=== PATIENT | male | born 1955 | race Hispanic/Latino ===

== ENCOUNTER 2017-11-06 10:00 | Emergency (ER) | payer MEDICARE ==
[~2017-11-06] VITALS: Ht 175.3 cm; Wt 106.6 kg
--- OUTSIDE RECORDS SUMMARY | 2017-11-06 10:02 | XMS REPORT ---
Author Author [facility] Address Unknown Phone Unavailable Care Team Providers Care Disaster Recovery Manager Name Role Phone KEYONA PEDROZA Unavailable Unavailable Problems This patient has no known problems. Allergies, Adverse Reactions, Alerts This patient has no known allergies or adverse reactions. Medications This patient has no known medications. Results Test Description Test Time Test Comments Text Results Atomic Results Result Comments BASIC METABOLIC PANEL 2017-01-03 12:39:00 SODIUM (BEAKER) (test nvpb=807) 134 meq/L 136-145 POTASSIUM (BEAKER) (test jlbl=524) 4.4 meq/L 3.5-5.1 Specimen slightly hemolyzed CHLORIDE (BEAKER) (test fzwt=215) 101 meq/L 98-107 CO2 (BEAKER) (test cjgq=041) 22 meq/L 22-29 BLOOD UREA NITROGEN (BEAKER) (test ujnb=697) 13 mg/dL 7-21 CREATININE (BEAKER) (test mwdi=865) 1.00 mg/dL 0.57-1.25 Specimen slightly hemolyzed GLUCOSE RANDOM (BEAKER) (test ghyi=033) 444 mg/dL 70-105 CALCIUM (BEAKER) (test fgdj=921) 8.8 mg/dL 8.4-10.2 EGFR (BEAKER) (test lqir=1267) 76 mL/min/1.73 sq m ESTIMATED GFR IS NOT ACCURATE CREATININE CLEARANCE IN PREDICTING GLOMERULAR FILTRATION RATE. ESTIMATED GFR IS NOT APPLICABLE FOR DIALYSIS PATIENTS. CBC W/PLT COUNT & AUTO [id number] 11:23:00* Test Item Value Reference Range Comments WHITE BLOOD CELL COUNT (BEAKER) (test mwif=777) 8.2 K/ L 4.0-10.0 RED BLOOD CELL COUNT (BEAKER) (test bcql=294) 4.74 M/ L 4.20-5.80 HEMOGLOBIN (BEAKER) (test zive=009) 15.0 GM/DL 13.0-16.8 HEMATOCRIT (BEAKER) (test annn=804) 41.5 % 40.0-50.0 MEAN CORPUSCULAR VOLUME (BEAKER) (test vntz=334) 87.6 fL 82.0-98.0 MEAN CORPUSCULAR HEMOGLOBIN (BEAKER) (test bqyf=004) 31.7 pg 27.0-33.0 MEAN CORPUSCULAR HEMOGLOBIN CONC (BEAKER) (test npqo=323) 36.1 GM/DL 32.0- 36.0 RED CELL DISTRIBUTION WIDTH (BEAKER) (test oooa=602) 13.0 % 10.3-14.2 PLATELET COUNT (BEAKER) (test opyq=184) 283 K/CU MM 150-430 MEAN PLATELET VOLUME (BEAKER) (test vdrk=832) 6.2 fL 6.5-10.5 NUCLEATED RED BLOOD CELLS (BEAKER) (test wjhi=603) 0 /100 WBC 0-0 NEUTROPHILS RELATIVE PERCENT (BEAKER) (test rdrs=965) 60 % LYMPHOCYTES RELATIVE PERCENT (BEAKER) (test erng=596) 33 % MONOCYTES RELATIVE PERCENT (BEAKER) (test wtzp=188) 5 % EOSINOPHILS RELATIVE PERCENT (BEAKER) (test sseo=023) 1 % BASOPHILS RELATIVE PERCENT (BEAKER) (test xnva=320) 1 % NEUTROPHILS ABSOLUTE COUNT (BEAKER) (test dssc=286) 4.90 K/ L 1.80-8.00 LYMPHOCYTES ABSOLUTE COUNT (BEAKER) (test rkyh=249) 2.70 K/ L 1.48-4.50 MONOCYTES ABSOLUTE COUNT (BEAKER) (test tyjk=752) 0.41 K/ L 0.00-1.30 EOSINOPHILS ABSOLUTE COUNT (BEAKER) (test dtbu=089) 0.11 K/ L 0.00-0.50 BASOPHILS ABSOLUTE COUNT (BEAKER) (test vdiu=663) 0.04 K/ L 0.00-0.20 0.00
[2017-11-06] MEDS ORDERED: SODIUM CHLORIDE 0.9% 1000ML 1,000 ML IV STA (10:28)
[2017-11-06] MEDS ORDERED: METRONIDAZOLE 500 MG TAB PO ONE (10:30)
[2017-11-06 11:00] LABS: BASOPHILS % 0.5 % (0.0-1.0); EOSINOPHILS # (AUTO) 0.1 (0.0-0.4); EOSINOPHILS % 1.1 % (0.0-6.0); HEMATOCRIT 38.1 % (38.2-49.6); HEMOGLOBIN 13.5 g/dL (14.0-18.0); LYMPHOCYTES # (AUTO) 2.2 (1.0-3.2); LYMPHOCYTES % 35.6 % (18.0-39.1); MEAN CORPUSCULAR HEMOGLOBIN 30.5 pg (28-32); MEAN CORPUSCULAR HGB CONC 35.4 g/dL (31-35); MONOCYTES # (AUTO) 0.4 (0.2-0.8); MONOCYTES % 6.6 % (4.4-11.3); NEUTROPHILS # (AUTO) 3.4 (2.1-6.9); PLATELET COUNT 239 x10e3/uL (140-360); RED BLOOD COUNT 4.43 x10e6/uL (4.3-5.7); RED CELL DISTRIBUTION WIDTH 12.5 % (11.7-14.4)
[2017-11-06 11:17] LABS: ALANINE AMINOTRANSFERASE 53 IU/L (0-55); ALBUMIN 3.6 g/dL (3.5-5.0); ALBUMIN/GLOBULIN RATIO 0.9 (0.8-2.0); ALKALINE PHOSPHATASE 84 IU/L (40-150); ANION GAP 11.7 mmol/L (8-16); BLOOD UREA NITROGEN 12 mg/dL (7-26); BUN/CREATININE RATIO 15 (6-25); CALCIUM 8.9 mg/dL (8.4-10.2); CARBON DIOXIDE 26 mmol/L (22-29); CHLORIDE 103 mmol/L (98-107); CREATININE, SERUM 0.78 mg/dL (0.72-1.25); EST GLOMERULAR FILTRATION RATE > 60 ML/MIN (60-); GLUCOSE 316 mg/dL (74-118); POTASSIUM 3.7 mmol/L (3.5-5.1); SODIUM 137 mmol/L (136-145)
[2017-11-06 11:40] LABS: BILIRUBIN,URINE NEGATIVE (NEGATIVE); KETONES,URINE NEGATIVE (NEGATIVE); LEUKOCYTE ESTERASE ,URINE NEGATIVE (NEGATIVE); NITRITE,URINE NEGATIVE (NEGATIVE); PROTEIN,URINE DIPSTICK NEGATIVE (NEGATIVE); URINE UROBILINOGEN 0.2 mg/dL (0.2 - 1)
[2017-11-06 11:46] LABS: CLARITY,URINE CLEAR (CLEAR); COLOR,URINE YELLOW (YELLOW)
[2017-11-06 11:54] LABS: EPITHELIAL CELLS,URINE RARE /LPF
[2017-11-06 12:58] VITALS: BP 104/62
== END 2017-11-06 13:08 | disposition home or self-care (01) ==
LOC: ER 10:00
DX: R19.7 Diarrhea, unspecified (principal)
CPT/HCPCS: 36415; 80053; 81001; 85025; 99283; J7030

== ENCOUNTER 2018-10-05 11:07 | Emergency (ER) | payer MEDICARE ==
[~2018-10-05] VITALS: Ht 175.3 cm; Wt 106.6 kg
--- OUTSIDE RECORDS SUMMARY | 2018-10-05 11:10 | XMS REPORT | Clinical Summary ---
Author Author JONATHAN [facility] Organization [facility] Address Unknown Phone Unavailable Care Team Providers Care Fitness Assistant Name Role Phone Sharpless PCP Allergies Not on File Medications Not on file Active Problems Not on file Social History Date Tobacco Use Types Packs/Day Years Used Never Assessed Sex Assigned at Date Recorded Not on file Industry Job Start Date Occupation Not on file Not on file Not on file Travel End Travel History Travel Start No recent travel history available. Last Filed Vital Signs Not on file Plan of Treatment Not on file Results Not on fileafter 10/04/2017 Insurance Payer Benefit Subscriber ID Type Phone Address Plan / Group MEDICARE MEDICARE A xxxxxxxxxx Medicare B MEDICAID MEDICAID xxxxxxxxx Medicaid [place] amily (Home) [place] [address]
[2018-10-05] MEDS ORDERED: SODIUM CHLORIDE 0.9% 1000ML 1,000 ML IV STA (11:27)
[2018-10-05] MEDS ORDERED: DICYCLOMINE HCL 20 MG/2 ML VIAL IM ONE (11:30)
[2018-10-05] MEDS ORDERED: CLONIDINE HCL 0.1 MG TAB PO NR (12:00)
--- NOTE | 2018-10-05 12:19 | Diagnostic Imaging Report ---
Examination: Single AP view of the chest. COMPARISON: None. INDICATION: Dizziness DISCUSSION: Lines/tubes: None. Lungs: The lungs are well inflated and clear. There is no evidence of pneumonia or pulmonary edema. Pleura: There is no pleural effusion or pneumothorax. Heart and mediastinum: The heart and the mediastinum are unremarkable. Bones and soft tissues: No acute bony abnormalities. IMPRESSION: 1. No acute cardiopulmonary abnormalities. Signed by: Dr. Geoffrey Gann M.D. on 10/05/2018 12:16 PM
[2018-10-05 12:38] LABS: BASOPHILS % 0.4 % (0.0-1.0); COLOR,URINE AMBER (YELLOW); EOSINOPHILS % 0.3 % (0.0-6.0); HEMATOCRIT 46.1 % (38.2-49.6); HEMOGLOBIN 16.4 g/dL (14.0-18.0); LYMPHOCYTES % 18.2 % (18.0-39.1); MEAN CORPUSCULAR HEMOGLOBIN 30.5 pg (28-32); MEAN CORPUSCULAR HGB CONC 35.6 g/dL (31-35); MEAN CORPUSCULAR VOLUME 85.7 fL (81-99); MONOCYTES # (AUTO) 0.6 (0.2-0.8); MONOCYTES % 5.6 % (4.4-11.3); NEUTROPHILS # (AUTO) 8.1 (2.1-6.9); NEUTROPHILS % 75.2 % (38.7-80.0); PLATELET COUNT 407 x10e3/uL (140-360); RED BLOOD COUNT 5.38 x10e6/uL (4.3-5.7); RED CELL DISTRIBUTION WIDTH 12.4 % (11.7-14.4)
[2018-10-05 12:39] LABS: BILIRUBIN,URINE NEGATIVE (NEGATIVE); CLARITY,URINE SL CLOUDY (CLEAR); KETONES,URINE NEGATIVE (NEGATIVE); LEUKOCYTE ESTERASE ,URINE NEGATIVE (NEGATIVE); NITRITE,URINE NEGATIVE (NEGATIVE); PROTEIN,URINE DIPSTICK 1+ (NEGATIVE); URINE UROBILINOGEN 0.2 mg/dL (0.2 - 1)
[2018-10-05 12:43] LABS: PHENCYCLIDINE SCREEN,URINE NEGATIVE (NEGATIVE)
[2018-10-05 12:44] LABS: AMPHETAMINES SCREEN,URINE NEGATIVE (NEGATIVE); BENZODIAZEPINES SCREEN,URINE POSITIVE (NEGATIVE)
[2018-10-05 12:59] LABS: AMYLASE 27 U/L (25-125); LIPASE 9 U/L (8-78)
[2018-10-05 13:03] LABS: PARTIAL THROMBOPLASTIN TIME 32.7 seconds (23.8-35.5); PROTHROMBIN TIME 14.1 seconds (11.9-14.5)
[2018-10-05 13:07] LABS: ALANINE AMINOTRANSFERASE 13 IU/L (0-55); ALBUMIN/GLOBULIN RATIO 0.8 (0.8-2.0); ALKALINE PHOSPHATASE 87 IU/L (40-150); ANION GAP 14.9 mmol/L (8-16); BLOOD UREA NITROGEN 22 mg/dL (7-26); BUN/CREATININE RATIO 19 (6-25); CALCIUM 9.3 mg/dL (8.4-10.2); CARBON DIOXIDE 28 mmol/L (22-29); CHLORIDE 99 mmol/L (98-107); CREATINE KINASE 36 IU/L (30-200); CREATININE, SERUM 1.17 mg/dL (0.72-1.25); EST GLOMERULAR FILTRATION RATE > 60 ML/MIN (60-); GLUCOSE 70 mg/dL (74-118); MAGNESIUM 1.9 MG/DL (1.3-2.1); POTASSIUM 3.9 mmol/L (3.5-5.1); SODIUM 138 mmol/L (136-145)
[2018-10-05 13:10] LABS: RBC,URINE 0-5 /HPF (0-5); WBC,URINE (MAN) 0-5 /HPF (0-5)
[2018-10-05 13:11] LABS: BACTERIA,URINE MODERATE /HPF; EPITHELIAL CELLS,URINE FEW /LPF; MUCUS,URINE MANY (RARE)
--- NOTE | 2018-10-05 13:34 | NUR ---
PT STATES HE IS NO LONGER DIZZY AND FEELS A LOT BETTER
--- NOTE | 2018-10-05 13:34 | NUR ---
PT REASSESSED FOR BACK PAIN AFTER BENTYL ADMIN AND STATES PAIN IS NOW 08/27
[2018-10-05 14:27] VITALS: BP 131/84
== END 2018-10-05 14:52 | disposition home or self-care (01) ==
LOC: ER 11:07
DX: R00.2 Palpitations (principal); R10.12 Left upper quadrant pain; R11.0 Nausea; R19.7 Diarrhea, unspecified; F11.23 Opioid dependence with withdrawal; I10 Essential (primary) hypertension; E11.9 Type 2 diabetes mellitus without complications; E78.5 Hyperlipidemia, unspecified; M54.5 Low back pain; G89.29 Other chronic pain; M10.9 Gout, unspecified
CPT/HCPCS: 36415; 71045; 80053; 80307; 81001; 82150; 82550; 82553; 82948; 83690; 83735; 84484; 85025; 85610; 85730; 93005; 99284; J0500; J7030

== ENCOUNTER 2020-09-24 16:02 | Inpatient (IN) | payer MEDICARE ==
[~2020-09-24] VITALS: Ht 175.3 cm; Wt 77.1 kg
[2020-09-24 16:59] LABS: BASOPHILS % 0.2 % (0.0-1.0); EOSINOPHILS % 0.2 % (0.0-6.0); HEMATOCRIT 28.4 % (38.2-49.6); HEMOGLOBIN 9.7 g/dL (14.0-18.0); LYMPHOCYTES % 20.9 % (18.0-39.1); MEAN CORPUSCULAR HEMOGLOBIN 35.4 pg (28-32); MEAN CORPUSCULAR HGB CONC 34.2 g/dL (31-35); MEAN CORPUSCULAR VOLUME 103.6 fL (81-99); MONOCYTES # (AUTO) 0.4 (0.2-0.8); NEUTROPHILS # (AUTO) 3.4 (2.1-6.9); NEUTROPHILS % 70.5 % (38.7-80.0); PLATELET COUNT 140 x10e3/uL (140-360); RED BLOOD COUNT 2.74 x10e6/uL (4.3-5.7); RED CELL DISTRIBUTION WIDTH 17.2 % (11.7-14.4)
[2020-09-24 17:22] LABS: INR 1.26; PROTHROMBIN TIME 16.7 seconds (11.9-14.5)
[2020-09-24 17:23] LABS: PARTIAL THROMBOPLASTIN TIME 40.4 seconds (23.8-35.5)
[2020-09-24 17:32] LABS: ALANINE AMINOTRANSFERASE 27 IU/L (0-55); ALBUMIN 1.7 g/dL (3.5-5.0); ALBUMIN/GLOBULIN RATIO 0.4 (0.8-2.0); ALKALINE PHOSPHATASE 168 IU/L (40-150); BLOOD UREA NITROGEN 22 mg/dL (7-26); BUN/CREATININE RATIO 23 (6-25); CARBON DIOXIDE 24 mmol/L (22-29); CHLORIDE 106 mmol/L (98-107); CREATINE KINASE 33 IU/L (30-200); CREATININE, SERUM 0.96 mg/dL (0.72-1.25); EST GLOMERULAR FILTRATION RATE > 60 ML/MIN (60-); GLUCOSE 92 mg/dL (74-118); MAGNESIUM 1.8 MG/DL (1.3-2.1); SODIUM 138 mmol/L (136-145)
[2020-09-24] MEDS ORDERED: ONDANSETRON HCL INJ 2MG/ML 2ML 2 MG/ML VIAL IV PRN (19:00)
[2020-09-24] MEDS ORDERED: SODIUM CHLORIDE FLUSH 10 ML SYR INJ PRN (19:00)
[2020-09-24] MEDS ORDERED: POTASSIUM CHLORIDE 20 MEQ TAB CR PO STA (19:11)
[2020-09-24] MEDS ORDERED: POTASSIUM CHLORIDE 20 MEQ TAB CR PO ONE (19:21)
[2020-09-24 20:46] VITALS: BP 114/59
[2020-09-24 21:00] VITALS: BP 114/59
[2020-09-24] MEDS ORDERED: FUROSEMIDE INJ 10 MG/ML 4 ML VIAL IV ONE (23:45)
[2020-09-25] VITALS (10 sets, daily range): BP systolic 85–124; BP diastolic 53–92
[2020-09-25 05:33] LABS: CLARITY,URINE CLEAR (CLEAR); COLOR,URINE YELLOW (YELLOW); KETONES,URINE NEGATIVE (NEGATIVE); LEUKOCYTE ESTERASE ,URINE TRACE (NEGATIVE); NITRITE,URINE NEGATIVE (NEGATIVE); PROTEIN,URINE DIPSTICK NEGATIVE (NEGATIVE); URINE UROBILINOGEN 0.2 mg/dL (0.2 - 1)
[2020-09-25 05:50] LABS: BASOPHILS % 0.2 % (0.0-1.0); EOSINOPHILS % 0.2 % (0.0-6.0); HEMATOCRIT 28.5 % (38.2-49.6); HEMOGLOBIN 9.6 g/dL (14.0-18.0); LYMPHOCYTES # (AUTO) 0.9 (1.0-3.2); LYMPHOCYTES % 18.5 % (18.0-39.1); MEAN CORPUSCULAR HEMOGLOBIN 35.8 pg (28-32); MEAN CORPUSCULAR HGB CONC 33.7 g/dL (31-35); MEAN CORPUSCULAR VOLUME 106.3 fL (81-99); MONOCYTES # (AUTO) 0.4 (0.2-0.8); NEUTROPHILS # (AUTO) 3.7 (2.1-6.9); NEUTROPHILS % 73.7 % (38.7-80.0); PLATELET COUNT 127 x10e3/uL (140-360); RED BLOOD COUNT 2.68 x10e6/uL (4.3-5.7); RED CELL DISTRIBUTION WIDTH 17.2 % (11.7-14.4)
[2020-09-25 05:52] LABS: EPITHELIAL CELLS,URINE RARE /LPF
[2020-09-25 05:53] LABS: WBC,URINE (MAN) 0-5 /HPF (0-5)
[2020-09-25 05:57] LABS: BACTERIA,URINE RARE /HPF; CALCIUM OXALATE CRYSTALS,UR FEW (FEW); RBC,URINE 0-5 /HPF (0-5)
[2020-09-25 06:09] LABS: INR 1.27; PROTHROMBIN TIME 16.8 seconds (11.9-14.5)
[2020-09-25 06:39] LABS: ALANINE AMINOTRANSFERASE 24 IU/L (0-55); ALBUMIN 1.6 g/dL (3.5-5.0); ALBUMIN/GLOBULIN RATIO 0.4 (0.8-2.0); ALKALINE PHOSPHATASE 158 IU/L (40-150); ANION GAP 12.3 mmol/L (8-16); BLOOD UREA NITROGEN 22 mg/dL (7-26); BUN/CREATININE RATIO 26 (6-25); CARBON DIOXIDE 23 mmol/L (22-29); CHLORIDE 107 mmol/L (98-107); CREATININE, SERUM 0.86 mg/dL (0.72-1.25); EST GLOMERULAR FILTRATION RATE > 60 ML/MIN (60-); GLUCOSE 73 mg/dL (74-118); POTASSIUM 3.3 mmol/L (3.5-5.1); SODIUM 139 mmol/L (136-145)
[2020-09-25 06:55] LABS: IRON 49 ug/dL (65-175); TRANSFERRIN < 70 mg/dL (174-364)
[2020-09-25] MEDS ORDERED: ALBUMIN 25% 12.5GM 50ML 150 ML IV ONE (08:56)
[2020-09-25] MEDS: SPIRONOLACTONE 25 MG TAB PO SCH ×3 (09:00→18:11)
[2020-09-25] MEDS: FUROSEMIDE INJ 10 MG/ML 4 ML VIAL IV SCH ×3 (09:00→20:16)
[2020-09-25] MEDS ORDERED: ALBUMIN 25% 12.5GM 50ML 50 ML IV ONE (09:20)
[2020-09-25] MEDS ORDERED: ALBUMIN 25% 12.5GM 50ML 100 ML IV ONE ×2 (09:32→17:27)
[2020-09-25 10:42] LABS: BODY FLUID APPEARANCE CLEAR; BODY FLUID COLOR YELLOW; BODY FLUID TYPE PERITONEAL
[2020-09-25 10:43] LABS: RBC,BODY FLUID 5 cells/uL; WBC,BODY FLUID 18 cells/uL
[2020-09-25] MEDS ORDERED: SODIUM CHLORIDE 0.9% 250ML 250 ML ONE (10:44)
[2020-09-25 11:48] LABS: LYMPHOCYTES,BODY FLUID 17 %; MONO/MACROPHG,BODY FLUID 22 %; NEUTROPHILS,BODY FLUID 61 %
[2020-09-25] MEDS ORDERED: MIDAZOLAM HCL 2 MG/2 ML VIAL ONE (13:41)
[2020-09-25] MEDS ORDERED: FENTANYL CITRATE/PF 100MCG/2 ML INJ ONE (13:41)
[2020-09-25] MEDS ORDERED: POTASSIUM CHLORIDE 20 MEQ TAB CR PO STA (13:45)
[2020-09-25] MEDS ORDERED: OYST-CAL-D 500MG TABLET PO ONE (14:45)
[2020-09-25] MEDS ORDERED: ALBUMIN 25% 25GM 100ML 0.25 GM/ML BTL IV ONE ×2 (17:30→17:45)
[2020-09-25] MEDS ORDERED: ALBUMIN 25% 25GM 100ML 100 ML IV ONE (18:00)
[2020-09-25] MEDS: HYDROCODONE/APAP 5MG-325MG TAB PO PRN (18:10)
[2020-09-25] MEDS: IRON SUCROSE 100 MG in SODIUM CHLORIDE 0.9% 100 ML 100 ML IV SCH (18:11)
[2020-09-25] MEDS ORDERED: POTASSIUM CHLORIDE 20 MEQ TAB CR PO ONE (18:18)
[2020-09-25] MEDS ORDERED: CALCIUM CARBONATE 500 MG CHEWABLE TABS ONE (18:18)
[2020-09-26] VITALS (7 sets, daily range): BP systolic 90–111; BP diastolic 62–77
[2020-09-26 05:24] LABS: HEMATOCRIT 23.1 % (38.2-49.6); HEMOGLOBIN 7.8 g/dL (14.0-18.0); LYMPHOCYTES # (AUTO) 0.4 (1.0-3.2); LYMPHOCYTES % 13.3 % (18.0-39.1); MEAN CORPUSCULAR HEMOGLOBIN 35.1 pg (28-32); MEAN CORPUSCULAR HGB CONC 33.8 g/dL (31-35); MEAN CORPUSCULAR VOLUME 104.1 fL (81-99); MONOCYTES # (AUTO) 0.2 (0.2-0.8); MONOCYTES % 6.5 % (4.4-11.3); NEUTROPHILS # (AUTO) 2.2 (2.1-6.9); NEUTROPHILS % 79.5 % (38.7-80.0); PLATELET COUNT 106 x10e3/uL (140-360); RED BLOOD COUNT 2.22 x10e6/uL (4.3-5.7); RED CELL DISTRIBUTION WIDTH 17.2 % (11.7-14.4)
[2020-09-26 05:44] LABS: ALANINE AMINOTRANSFERASE 25 IU/L (0-55); ALBUMIN 2.3 g/dL (3.5-5.0); ALBUMIN/GLOBULIN RATIO 1.2 (0.8-2.0); ALKALINE PHOSPHATASE 146 IU/L (40-150); BLOOD UREA NITROGEN 16 mg/dL (7-26); BUN/CREATININE RATIO 25 (6-25); CALCIUM 7.1 mg/dL (8.4-10.2); CARBON DIOXIDE 23 mmol/L (22-29); CHLORIDE 111 mmol/L (98-107); CREATININE, SERUM 0.64 mg/dL (0.72-1.25); EST GLOMERULAR FILTRATION RATE > 60 ML/MIN (60-); GLUCOSE 62 mg/dL (74-118); MAGNESIUM 1.7 MG/DL (1.3-2.1); PHOSPHORUS 3.1 MG/DL (2.3-4.7); SODIUM 143 mmol/L (136-145)
[2020-09-26 06:42] LABS: CALCIUM IONIZED 1.1 mmol/L (1.09-1.30)
[2020-09-26] MEDS ORDERED: POTASSIUM CHLORIDE 20 MEQ TAB CR PO ONE ×2 (08:30→10:00)
[2020-09-26] MEDS: SPIRONOLACTONE 25 MG TAB PO SCH ×2 (08:37→17:00)
[2020-09-26] MEDS: FUROSEMIDE INJ 10 MG/ML 4 ML VIAL IV SCH ×2 (08:37→22:40)
[2020-09-26] MEDS: HYDROCODONE/APAP 5MG-325MG TAB PO PRN (10:45)
[2020-09-26 12:21] LABS: ANION GAP 13.4 mmol/L (8-16); BLOOD UREA NITROGEN 14 mg/dL (7-26); BUN/CREATININE RATIO 21 (6-25); CALCIUM 7.1 mg/dL (8.4-10.2); CARBON DIOXIDE 21 mmol/L (22-29); CHLORIDE 111 mmol/L (98-107); CREATININE, SERUM 0.66 mg/dL (0.72-1.25); EST GLOMERULAR FILTRATION RATE > 60 ML/MIN (60-); GLUCOSE 99 mg/dL (74-118); POTASSIUM 3.4 mmol/L (3.5-5.1); SODIUM 142 mmol/L (136-145)
[2020-09-26] MEDS ORDERED: ALPRAZOLAM 1 MG TAB PO ONE (14:00)
[2020-09-26] MEDS: IRON SUCROSE 100 MG in SODIUM CHLORIDE 0.9% 100 ML 100 ML IV SCH (17:27)
[2020-09-26] MEDS ORDERED: POTASSIUM CHLORIDE 20 MEQ TAB CR PO STA (21:54)
[2020-09-26] MEDS ORDERED: ALPRAZOLAM 0.5 MG TAB PO PRN (22:00)
[2020-09-27 00:23] VITALS: BP 113/80
[2020-09-27] MEDS: HYDROCODONE/APAP 5MG-325MG TAB PO PRN (03:15)
[2020-09-27 05:25] VITALS: BP 120/88
[2020-09-27 07:28] LABS: EOSINOPHILS % 0.2 % (0.0-6.0); HEMATOCRIT 28.3 % (38.2-49.6); HEMOGLOBIN 9.7 g/dL (14.0-18.0); LYMPHOCYTES # (AUTO) 0.4 (1.0-3.2); MEAN CORPUSCULAR HEMOGLOBIN 36.3 pg (28-32); MEAN CORPUSCULAR HGB CONC 34.3 g/dL (31-35); MONOCYTES # (AUTO) 0.2 (0.2-0.8); MONOCYTES % 4.6 % (4.4-11.3); NEUTROPHILS # (AUTO) 3.5 (2.1-6.9); NEUTROPHILS % 84.5 % (38.7-80.0); PLATELET COUNT 128 x10e3/uL (140-360); RED BLOOD COUNT 2.67 x10e6/uL (4.3-5.7); RED CELL DISTRIBUTION WIDTH 18.2 % (11.7-14.4)
[2020-09-27 07:37] LABS: INR 1.31; PROTHROMBIN TIME 17.2 seconds (11.9-14.5)
[2020-09-27 07:51] LABS: ALANINE AMINOTRANSFERASE 31 IU/L (0-55); ALBUMIN 2.2 g/dL (3.5-5.0); ALBUMIN/GLOBULIN RATIO 0.9 (0.8-2.0); ALKALINE PHOSPHATASE 160 IU/L (40-150); BLOOD UREA NITROGEN 12 mg/dL (7-26); BUN/CREATININE RATIO 19 (6-25); CALCIUM 7.3 mg/dL (8.4-10.2); CARBON DIOXIDE 23 mmol/L (22-29); CHLORIDE 112 mmol/L (98-107); CREATININE, SERUM 0.63 mg/dL (0.72-1.25); EST GLOMERULAR FILTRATION RATE > 60 ML/MIN (60-); GLUCOSE 111 mg/dL (74-118); MAGNESIUM 1.7 MG/DL (1.3-2.1); SODIUM 142 mmol/L (136-145)
[2020-09-27 07:52] LABS: PLATELET ESTIMATE MODERATELY DECREASED; PLATELET MORPHOLOGY COMMENT NORMAL
[2020-09-27 08:00] VITALS: BP 118/90
[2020-09-27 08:07] VITALS: BP 118/90
[2020-09-27] MEDS ORDERED: FUROSEMIDE 40 MG TAB PO SCH (09:00)
[2020-09-27] MEDS ORDERED: POTASSIUM CHLORIDE 20 MEQ TAB CR PO SCH (09:00)
[2020-09-27] MEDS: SPIRONOLACTONE 25 MG TAB PO SCH (09:12)
[2020-09-27] MEDS ORDERED: SPIRONOLACTONE50 MG PO (09:44)
[2020-09-27] MEDS ORDERED: ALPRAZOLAM0.5 MG PO (09:44)
[2020-09-27] MEDS ORDERED: LASIX40 MG PO (09:44)
[2020-09-27 11:44] VITALS: BP 109/97
[2020-09-27] MEDS ORDERED: HEPARIN 500 UNITS/5ML MDV INJ ONE (12:00)
[2020-09-27] MEDS ORDERED: PROPRANOLOL HCL 10 MG TAB PO SCH (17:00)
== END 2020-09-27 12:30 | disposition home or self-care (01) | DRG 433 ==
LOC: ER 16:12 → ERHOLD 19:05 → MED/SURG 20:51 → OBSVTOIN 09-26 08:07
PROVIDERS: ADMIT Internal Medicine; ATTEND Internal Medicine
PROC: 0W9G3ZZ Drainage of Peritoneal Cavity, Percutaneous Approach (ICD-10-PCS; 2020-09-25)
PROC: 0DJ08ZZ Inspection of Upper Intestinal Tract, Via Natural or Artificial Opening Endoscopic (ICD-10-PCS; principal; 2020-09-25 15:30)
DX: K74.69 Other cirrhosis of liver (principal); J90 Pleural effusion, not elsewhere classified; T85.123A Displacement of implanted electronic neurostimulator, generator, initial encounter; I85.10 Secondary esophageal varices without bleeding; K91.89 Other postprocedural complications and disorders of digestive system; R18.8 Other ascites; K29.70 Gastritis, unspecified, without bleeding; Z85.028 Personal history of other malignant neoplasm of stomach; Z90.3 Acquired absence of stomach [part of]; D69.59 Other secondary thrombocytopenia; I10 Essential (primary) hypertension; D64.9 Anemia, unspecified; G89.21 Chronic pain due to trauma; Z20.822 Contact with and (suspected) exposure to COVID-19
CPT/HCPCS: 36415; 43235; 49083; 71045; 74176; 74470; 76700; 80048; 80053; 81001; 82040; 82140; 82270; 82550; 82553; 82607; 82728; 82746; 83036; 83540; 83615; 83735; 83880; 84100; 84157; 84466; 84484; 85025; 85045; 85610; 85730; 87040; 87070; 87086; 87205; 87521; 89051; 93005; 93306; 99284; G0378; J1756; J1940; J2250; J3010; J7050; P9047; U0002

== ENCOUNTER → 2020-10-11 | Outpatient (CLI) | payer MEDICARE ==
[~2020-10-11] MED LIST: ALBUMIN 25% 12.5GM 50ML 100 ML IV ONE; ALBUMIN 25% 12.5GM 50ML 150 ML IV ONE; ALBUMIN 25% 12.5GM 50ML 50 ML IV ONE; ALPRAZOLAM0.5 MG PO; LASIX40 MG PO; SPIRONOLACTONE50 MG PO
== END ==
LOC: US 09:55
PROVIDERS: ATTEND Internal Medicine
DX: R18.8 Other ascites (principal)
CPT/HCPCS: 49083

== ENCOUNTER 2020-10-12 12:55 | Inpatient (IN) | payer MEDICARE ==
[~2020-10-12] VITALS: Ht 170.2 cm; Wt 71.4 kg
[~2020-10-12 12:55] MED LIST changes: -ALBUMIN 25% 12.5GM 50ML 100 ML IV ONE; -ALBUMIN 25% 12.5GM 50ML 150 ML IV ONE; -ALBUMIN 25% 12.5GM 50ML 50 ML IV ONE
[2020-10-12] MEDS ORDERED: SODIUM CHLORIDE 0.9% 1000ML 1,000 ML IV SCH (13:15)
[2020-10-12 13:37] LABS: HEMOGLOBIN 9.4 g/dL (14.0-18.0); LYMPHOCYTES # (AUTO) 0.6 (1.0-3.2); LYMPHOCYTES % 10.7 % (18.0-39.1); MEAN CORPUSCULAR HEMOGLOBIN 34.2 pg (28-32); MEAN CORPUSCULAR HGB CONC 34.8 g/dL (31-35); MEAN CORPUSCULAR VOLUME 98.2 fL (81-99); MONOCYTES # (AUTO) 0.3 (0.2-0.8); MONOCYTES % 5.9 % (4.4-11.3); NEUTROPHILS # (AUTO) 4.3 (2.1-6.9); PLATELET COUNT 149 x10e3/uL (140-360); RED BLOOD COUNT 2.75 x10e6/uL (4.3-5.7); RED CELL DISTRIBUTION WIDTH 17.2 % (11.7-14.4)
[2020-10-12 13:58] LABS: ALANINE AMINOTRANSFERASE 62 IU/L (0-55); ALBUMIN 2.5 g/dL (3.5-5.0); ALBUMIN/GLOBULIN RATIO 1.1 (0.8-2.0); ALKALINE PHOSPHATASE 251 IU/L (40-150); ANION GAP 11.3 mmol/L (8-16); BLOOD UREA NITROGEN 21 mg/dL (7-26); BUN/CREATININE RATIO 27 (6-25); CALCIUM 7.4 mg/dL (8.4-10.2); CARBON DIOXIDE 26 mmol/L (22-29); CHLORIDE 100 mmol/L (98-107); CREATININE, SERUM 0.77 mg/dL (0.72-1.25); EST GLOMERULAR FILTRATION RATE > 60 ML/MIN (60-); GLUCOSE 191 mg/dL (74-118); SODIUM 135 mmol/L (136-145)
[2020-10-12 14:11] LABS: POTASSIUM 2.3 mmol/L (3.5-5.1)
[2020-10-12] MEDS ORDERED: POTASSIUM CHLORIDE 20 MEQ TAB CR PO STA ×2 (14:13→21:11)
[2020-10-12] MEDS ORDERED: PIPERACILLIN/TAZO 4.5 GM 100 ML IV STA (14:14)
[2020-10-12] MEDS ORDERED: POTASSIUM CHLORIDE 20MEQ/100ML 200 ML IV ONE (14:15)
[2020-10-12] MEDS ORDERED: IOPAMIDOL 370 MG/ML 200 ML INFUS..BTL INJ ONE (14:38)
[2020-10-12] MEDS ORDERED: SODIUM CHLORIDE 0.9% 50ML 50 ML ONE (14:38)
[2020-10-12 15:52] LABS: CLARITY,URINE SL CLOUDY (CLEAR); COLOR,URINE AMBER (YELLOW); KETONES,URINE NEGATIVE (NEGATIVE); LEUKOCYTE ESTERASE ,URINE NEGATIVE (NEGATIVE); NITRITE,URINE NEGATIVE (NEGATIVE); PROTEIN,URINE DIPSTICK NEGATIVE (NEGATIVE); URINE UROBILINOGEN 1 mg/dL (0.2 - 1)
[2020-10-12 16:04] LABS: RBC,URINE 0-5 /HPF (0-5)
[2020-10-12 16:05] LABS: AMORPHOUS SEDIMENT,URINE MODERATE (FEW); BACTERIA,URINE FEW /HPF; EPITHELIAL CELLS,URINE FEW /LPF
[2020-10-12 20:42] LABS: ANION GAP 11.4 mmol/L (8-16); BLOOD UREA NITROGEN 19 mg/dL (7-26); BUN/CREATININE RATIO 30 (6-25); CARBON DIOXIDE 26 mmol/L (22-29); CHLORIDE 104 mmol/L (98-107); CREATININE, SERUM 0.63 mg/dL (0.72-1.25); EST GLOMERULAR FILTRATION RATE > 60 ML/MIN (60-); GLUCOSE 129 mg/dL (74-118); POTASSIUM 3.4 mmol/L (3.5-5.1); SODIUM 138 mmol/L (136-145)
[2020-10-12 21:00] VITALS: BP 115/78
[2020-10-12] MEDS ORDERED: OYST-CAL-D 500MG TABLET PO ONE (21:15)
[2020-10-12] MEDS ORDERED: CALCIUM CARBONATE 500 MG CHEWABLE TABS PO STA (21:31)
[2020-10-12] MEDS ORDERED: CALCIUM CARBONATE 500 MG CHEWABLE TABS ONE (21:32)
[2020-10-12] MEDS ORDERED: POTASSIUM CHLORIDE 20 MEQ TAB CR PO ONE (21:32)
[2020-10-12 22:00] VITALS: BP 97/74
[2020-10-12] MEDS ORDERED: ALPRAZOLAM 0.5 MG TAB PO PRN (23:00)
[2020-10-12] MEDS ORDERED: LACTULOSE SYRUP 20 GM/30 ML UDC PO PRN (23:00)
[2020-10-12 23:20] VITALS: BP 97/74
[2020-10-13] VITALS (9 sets, daily range): BP systolic 89–103; BP diastolic 67–83
[2020-10-13 07:39] LABS: HEMATOCRIT 24.4 % (38.2-49.6); HEMOGLOBIN 8.8 g/dL (14.0-18.0); LYMPHOCYTES # (AUTO) 0.5 (1.0-3.2); LYMPHOCYTES % 11.3 % (18.0-39.1); MEAN CORPUSCULAR HEMOGLOBIN 37.1 pg (28-32); MEAN CORPUSCULAR HGB CONC 36.1 g/dL (31-35); MONOCYTES # (AUTO) 0.2 (0.2-0.8); NEUTROPHILS # (AUTO) 3.7 (2.1-6.9); NEUTROPHILS % 83.5 % (38.7-80.0); PLATELET COUNT 121 x10e3/uL (140-360); RED BLOOD COUNT 2.37 x10e6/uL (4.3-5.7); RED CELL DISTRIBUTION WIDTH 19.5 % (11.7-14.4)
[2020-10-13 07:48] LABS: INR 1.42; PROTHROMBIN TIME 18.4 seconds (11.9-14.5)
[2020-10-13 08:02] LABS: ALANINE AMINOTRANSFERASE 60 IU/L (0-55); ALBUMIN/GLOBULIN RATIO 0.9 (0.8-2.0); ALKALINE PHOSPHATASE 237 IU/L (40-150); ANION GAP 8.6 mmol/L (8-16); BLOOD UREA NITROGEN 19 mg/dL (7-26); BUN/CREATININE RATIO 30 (6-25); CALCIUM 7.1 mg/dL (8.4-10.2); CARBON DIOXIDE 28 mmol/L (22-29); CHLORIDE 105 mmol/L (98-107); CREATININE, SERUM 0.63 mg/dL (0.72-1.25); EST GLOMERULAR FILTRATION RATE > 60 ML/MIN (60-); GLUCOSE 119 mg/dL (74-118); POTASSIUM 4.6 mmol/L (3.5-5.1); SODIUM 137 mmol/L (136-145)
[2020-10-13 08:52] LABS: CALCIUM IONIZED 1.1 mmol/L (1.09-1.30)
[2020-10-13] MEDS: MIDODRINE 2.5 MG TAB PO SCH ×3 (09:29→16:21)
[2020-10-13] MEDS: FUROSEMIDE 40 MG TAB PO SCH ×2 (09:31→16:21)
[2020-10-13] MEDS: SPIRONOLACTONE 25 MG TAB PO SCH ×2 (09:31→16:21)
[2020-10-14] VITALS (9 sets, daily range): BP systolic 87–110; BP diastolic 48–84
[2020-10-14] MEDS: HYDROCODONE/APAP 10MG-325MG TAB PO PRN ×3 (01:33→16:58)
[2020-10-14 06:29] LABS: BASOPHILS % 0.2 % (0.0-1.0); HEMATOCRIT 25.1 % (38.2-49.6); HEMOGLOBIN 9.7 g/dL (14.0-18.0); LYMPHOCYTES # (AUTO) 0.7 (1.0-3.2); LYMPHOCYTES % 10.4 % (18.0-39.1); MEAN CORPUSCULAR HEMOGLOBIN 42.4 pg (28-32); MEAN CORPUSCULAR HGB CONC 38.6 g/dL (31-35); MEAN CORPUSCULAR VOLUME 109.6 fL (81-99); MONOCYTES # (AUTO) 0.3 (0.2-0.8); MONOCYTES % 4.9 % (4.4-11.3); NEUTROPHILS # (AUTO) 5.5 (2.1-6.9); NEUTROPHILS % 83.9 % (38.7-80.0); PLATELET COUNT 105 x10e3/uL (140-360); RED BLOOD COUNT 2.29 x10e6/uL (4.3-5.7); RED CELL DISTRIBUTION WIDTH 22.2 % (11.7-14.4)
[2020-10-14 06:38] LABS: CALCIUM IONIZED 1.1 mmol/L (1.09-1.30)
[2020-10-14 06:51] LABS: ALANINE AMINOTRANSFERASE 63 IU/L (0-55); ALBUMIN 1.9 g/dL (3.5-5.0); ALBUMIN/GLOBULIN RATIO 0.7 (0.8-2.0); ALKALINE PHOSPHATASE 260 IU/L (40-150); ANION GAP 10.2 mmol/L (8-16); BLOOD UREA NITROGEN 18 mg/dL (7-26); BUN/CREATININE RATIO 24 (6-25); CALCIUM 7.3 mg/dL (8.4-10.2); CARBON DIOXIDE 27 mmol/L (22-29); CHLORIDE 103 mmol/L (98-107); CREATININE, SERUM 0.74 mg/dL (0.72-1.25); EST GLOMERULAR FILTRATION RATE > 60 ML/MIN (60-); GLUCOSE 142 mg/dL (74-118); MAGNESIUM 1.9 MG/DL (1.3-2.1); POTASSIUM 4.2 mmol/L (3.5-5.1); SODIUM 136 mmol/L (136-145)
[2020-10-14] MEDS ORDERED: POTASSIUM CHLORIDE 20 MEQ TAB CR PO SCH (09:00)
[2020-10-14] MEDS: MIDODRINE 2.5 MG TAB PO SCH ×3 (09:22→16:58)
[2020-10-14] MEDS: SPIRONOLACTONE 25 MG TAB PO SCH ×2 (09:22→16:58)
[2020-10-14] MEDS: FUROSEMIDE 40 MG TAB PO SCH ×2 (09:23→16:58)
[2020-10-14] MEDS ORDERED: MIDODRINE HCL5 MG PO (11:58)
[2020-10-14] MEDS ORDERED: LACTULOSE20 GM/30 M PO (11:58)
[2020-10-14] MEDS ORDERED: MELATONIN5 M2 PO (11:58)
[2020-10-14] MEDS ORDERED: K DUR10 MEQ PO (11:58)
[2020-10-14] MEDS ORDERED: FUROSEMIDE40 MG PO (11:58)
[2020-10-14] MEDS: IRON SUCROSE 100 MG in SODIUM CHLORIDE 0.9% 100 ML 100 ML IV SCH (12:37)
[2020-10-14] MEDS ORDERED: SODIUM CHLORIDE 0.9% 250ML 250 ML ONE (12:51)
[2020-10-14] MEDS: ENOXAPARIN INJ 80 MG/0.8 ML SYR SC SCH (16:58)
[2020-10-14 17:19] LABS: CLARITY,URINE HAZY (CLEAR); COLOR,URINE AMBER (YELLOW); KETONES,URINE TRACE (NEGATIVE); LEUKOCYTE ESTERASE ,URINE NEGATIVE (NEGATIVE); NITRITE,URINE NEGATIVE (NEGATIVE); PROTEIN,URINE DIPSTICK TRACE (NEGATIVE); URINE UROBILINOGEN 0.2 mg/dL (0.2 - 1)
[2020-10-14 17:20] LABS: BACTERIA,URINE FEW /HPF; EPITHELIAL CELLS,URINE FEW /LPF; RBC,URINE 0-5 /HPF (0-5); WBC,URINE (MAN) 0-5 /HPF (0-5)
[2020-10-14] MEDS ORDERED: MELATONIN 5 MG TABLET PO PRN (19:15)
[2020-10-14] MEDS ORDERED: MELATONIN 5 MG TABLET PO SCH (21:00)
[2020-10-15] VITALS (8 sets, daily range): BP systolic 72–107; BP diastolic 60–85
[2020-10-15] MEDS ORDERED: HYDROCODONE/APAP 10MG-325MG TAB PO STA (00:07)
[2020-10-15] MEDS: ENOXAPARIN INJ 80 MG/0.8 ML SYR SC SCH ×2 (02:00→14:00)
[2020-10-15] MEDS: HYDROCODONE/APAP 10MG-325MG TAB PO PRN ×3 (03:17→22:47)
[2020-10-15] MEDS: MIDODRINE 2.5 MG TAB PO SCH ×3 (08:56→16:30)
[2020-10-15] MEDS: SPIRONOLACTONE 25 MG TAB PO SCH ×2 (08:56→17:00)
[2020-10-15] MEDS: POTASSIUM CHLORIDE 10MEQ EA PO SCH (08:57)
[2020-10-15] MEDS: FUROSEMIDE 40 MG TAB PO SCH ×2 (08:57→17:00)
[2020-10-15] MEDS: IRON SUCROSE 100 MG in SODIUM CHLORIDE 0.9% 100 ML 100 ML IV SCH (11:00)
[2020-10-15] MEDS: PHENAZOPYRIDINE HCL 100 MG TAB PO PRN (22:47)
[2020-10-15] MEDS: ONDANSETRON HCL 4 MG ORAL DISINTEGRATING TAB PO PRN (22:54)
[2020-10-16] VITALS (8 sets, daily range): BP systolic 81–106; BP diastolic 61–85
[2020-10-16] MEDS: ENOXAPARIN INJ 80 MG/0.8 ML SYR SC SCH ×2 (01:48→14:50)
[2020-10-16] MEDS: SPIRONOLACTONE 25 MG TAB PO SCH ×2 (09:00→17:49)
[2020-10-16 09:05] LABS: EOSINOPHILS % 0.1 % (0.0-6.0); HEMATOCRIT 27.1 % (38.2-49.6); HEMOGLOBIN 9.4 g/dL (14.0-18.0); LYMPHOCYTES # (AUTO) 0.7 (1.0-3.2); LYMPHOCYTES % 8.5 % (18.0-39.1); MEAN CORPUSCULAR HEMOGLOBIN 35.2 pg (28-32); MEAN CORPUSCULAR HGB CONC 34.7 g/dL (31-35); MEAN CORPUSCULAR VOLUME 101.5 fL (81-99); MONOCYTES # (AUTO) 0.5 (0.2-0.8); MONOCYTES % 6.1 % (4.4-11.3); NEUTROPHILS # (AUTO) 6.6 (2.1-6.9); NEUTROPHILS % 84.8 % (38.7-80.0); PLATELET COUNT 179 x10e3/uL (140-360); RED BLOOD COUNT 2.67 x10e6/uL (4.3-5.7); RED CELL DISTRIBUTION WIDTH 17.5 % (11.7-14.4)
[2020-10-16] MEDS: FUROSEMIDE 40 MG TAB PO SCH ×2 (09:17→17:49)
[2020-10-16] MEDS: POTASSIUM CHLORIDE 10MEQ EA PO SCH (09:17)
[2020-10-16] MEDS: MIDODRINE 2.5 MG TAB PO SCH ×3 (09:17→17:48)
[2020-10-16 09:39] LABS: ALBUMIN 1.8 g/dL (3.5-5.0); ALBUMIN/GLOBULIN RATIO 0.6 (0.8-2.0); ANION GAP 13.1 mmol/L (8-16); CALCIUM 7.4 mg/dL (8.4-10.2); CREATININE, SERUM 1.24 mg/dL (0.72-1.25); POTASSIUM 5.1 mmol/L (3.5-5.1)
[2020-10-16 09:58] LABS: BILIRUBIN,DIRECT 5.6 mg/dL (0.0-0.5)
[2020-10-16 10:10] LABS: CALCIUM IONIZED 1.1 mmol/L (1.09-1.30)
[2020-10-16] MEDS ORDERED: ALBUMIN 25% 12.5GM 50ML 100 ML IV ONE (10:14)
[2020-10-16] MEDS ORDERED: ALBUMIN 25% 12.5GM 50ML 50 ML IV ONE (10:27)
[2020-10-16] MEDS ORDERED: B&O 60MG R/S 60 MG SUPP PR ONE ×2 (10:45→10:49)
[2020-10-16 12:29] LABS: BODY FLUID APPEARANCE CLEAR; BODY FLUID COLOR YELLOW; BODY FLUID TYPE PERITONEAL
[2020-10-16 12:30] LABS: RBC,BODY FLUID 176 cells/uL; WBC,BODY FLUID 33 cells/uL
[2020-10-16] MEDS: IRON SUCROSE 100 MG in SODIUM CHLORIDE 0.9% 100 ML 100 ML IV SCH (12:43)
[2020-10-16 12:57] LABS: LYMPHOCYTES,BODY FLUID 50 %; MONO/MACROPHG,BODY FLUID 29 %; NEUTROPHILS,BODY FLUID 12 %
[2020-10-16 12:58] LABS: OTHER CELLS,BODY FLUID 9 %
[2020-10-16] MEDS: PHENAZOPYRIDINE HCL 100 MG TAB PO PRN (20:39)
[2020-10-16] MEDS: ONDANSETRON HCL 4 MG ORAL DISINTEGRATING TAB PO PRN (20:39)
[2020-10-17] VITALS (9 sets, daily range): BP systolic 79–91; BP diastolic 60–74
[2020-10-17] MEDS: HYDROCODONE/APAP 10MG-325MG TAB PO PRN ×4 (01:04→22:17)
[2020-10-17] MEDS: ENOXAPARIN INJ 80 MG/0.8 ML SYR SC SCH ×2 (01:05→13:03)
[2020-10-17] MEDS: PHENAZOPYRIDINE HCL 100 MG TAB PO PRN ×2 (05:30→20:20)
[2020-10-17 05:50] LABS: EOSINOPHILS % 0.4 % (0.0-6.0); HEMATOCRIT 23.3 % (38.2-49.6); HEMOGLOBIN 7.9 g/dL (14.0-18.0); LYMPHOCYTES # (AUTO) 0.7 (1.0-3.2); LYMPHOCYTES % 13.7 % (18.0-39.1); MEAN CORPUSCULAR HEMOGLOBIN 34.1 pg (28-32); MEAN CORPUSCULAR HGB CONC 33.9 g/dL (31-35); MEAN CORPUSCULAR VOLUME 100.4 fL (81-99); MONOCYTES # (AUTO) 0.3 (0.2-0.8); MONOCYTES % 6.7 % (4.4-11.3); NEUTROPHILS % 78.8 % (38.7-80.0); PLATELET COUNT 124 x10e3/uL (140-360); RED BLOOD COUNT 2.32 x10e6/uL (4.3-5.7); RED CELL DISTRIBUTION WIDTH 17.2 % (11.7-14.4)
[2020-10-17 06:04] LABS: ALANINE AMINOTRANSFERASE 47 IU/L (0-55); ALBUMIN 2.1 g/dL (3.5-5.0); ALBUMIN/GLOBULIN RATIO 0.9 (0.8-2.0); ALKALINE PHOSPHATASE 194 IU/L (40-150); ANION GAP 10.5 mmol/L (8-16); BLOOD UREA NITROGEN 24 mg/dL (7-26); BUN/CREATININE RATIO 24 (6-25); CALCIUM 7.2 mg/dL (8.4-10.2); CARBON DIOXIDE 27 mmol/L (22-29); CHLORIDE 103 mmol/L (98-107); EST GLOMERULAR FILTRATION RATE > 60 ML/MIN (60-); GLUCOSE 99 mg/dL (74-118); POTASSIUM 4.5 mmol/L (3.5-5.1); SODIUM 136 mmol/L (136-145)
[2020-10-17] MEDS: POTASSIUM CHLORIDE 10MEQ EA PO SCH (09:32)
[2020-10-17] MEDS: SPIRONOLACTONE 25 MG TAB PO SCH ×2 (09:32→16:12)
[2020-10-17] MEDS: FUROSEMIDE 40 MG TAB PO SCH ×2 (09:32→16:12)
[2020-10-17] MEDS: MIDODRINE 2.5 MG TAB PO SCH ×3 (09:37→16:12)
[2020-10-17] MEDS ORDERED: OYST-CAL-D 500MG TABLET PO NR (11:30)
[2020-10-17] MEDS: IRON SUCROSE 100 MG in SODIUM CHLORIDE 0.9% 100 ML 100 ML IV SCH (13:03)
[2020-10-18] VITALS: BP 88/67
[2020-10-18] MEDS: HYDROCODONE/APAP 10MG-325MG TAB PO PRN ×3 (01:13→10:20)
[2020-10-18] MEDS: ENOXAPARIN INJ 80 MG/0.8 ML SYR SC SCH (02:18)
[2020-10-18 04:00] VITALS: BP 100/74
[2020-10-18] MEDS: PHENAZOPYRIDINE HCL 100 MG TAB PO PRN (06:05)
[2020-10-18 06:27] LABS: BASOPHILS % 0.1 % (0.0-1.0); EOSINOPHILS % 0.3 % (0.0-6.0); HEMATOCRIT 26.9 % (38.2-49.6); LYMPHOCYTES % 12.8 % (18.0-39.1); MEAN CORPUSCULAR HEMOGLOBIN 33.6 pg (28-32); MEAN CORPUSCULAR HGB CONC 33.5 g/dL (31-35); MEAN CORPUSCULAR VOLUME 100.4 fL (81-99); MONOCYTES # (AUTO) 0.5 (0.2-0.8); MONOCYTES % 6.3 % (4.4-11.3); NEUTROPHILS # (AUTO) 6.1 (2.1-6.9); PLATELET COUNT 162 x10e3/uL (140-360); RED BLOOD COUNT 2.68 x10e6/uL (4.3-5.7); RED CELL DISTRIBUTION WIDTH 17.2 % (11.7-14.4)
[2020-10-18 06:56] LABS: ALBUMIN/GLOBULIN RATIO 0.7 (0.8-2.0); ANION GAP 12.6 mmol/L (8-16); CALCIUM 7.3 mg/dL (8.4-10.2); CREATININE, SERUM 1.23 mg/dL (0.72-1.25); POTASSIUM 4.6 mmol/L (3.5-5.1)
[2020-10-18 07:46] VITALS: BP 94/66
[2020-10-18] MEDS ORDERED: BALSAM PERU/CASTOR OIL 60 GM OINT...G. TP SCH (09:00)
[2020-10-18] MEDS: SPIRONOLACTONE 25 MG TAB PO SCH (09:06)
[2020-10-18] MEDS: POTASSIUM CHLORIDE 10MEQ EA PO SCH (09:06)
[2020-10-18] MEDS: MIDODRINE 2.5 MG TAB PO SCH ×2 (09:07→12:38)
[2020-10-18] MEDS: FUROSEMIDE 40 MG TAB PO SCH (09:08)
[2020-10-18] MEDS: IRON SUCROSE 100 MG in SODIUM CHLORIDE 0.9% 100 ML 100 ML IV SCH (11:03)
[2020-10-18 12:17] VITALS: BP 88/72
[2020-10-18] MEDS ORDERED: ONDANSETRON ODT4 MG PO (13:02)
[2020-10-18] MEDS ORDERED: MIDODRINE HCL2.5 MG PO (13:02)
[2020-10-18] MEDS ORDERED: MELATONIN5 M2 PO (13:02)
[2020-10-18] MEDS ORDERED: HYDROCODON-ACE1 EAC9 PO (13:02)
[2020-10-18] MEDS ORDERED: PYRIDIUM100 MG PO (13:02)
[2020-10-18] MEDS ORDERED: HEPARIN 500 UNITS/5ML MDV INJ ONE (15:45)
[2020-10-19] MEDS ORDERED: ENOXAPARIN SOD INJ 40 MG/0.4 ML SYR SC SCH (09:00)
== END 2020-10-18 15:50 | disposition home or self-care (01) | DRG 433 ==
LOC: ER 13:05 → ERHOLD 14:43 → MED/SURG3 21:47
PROVIDERS: ADMIT Internal Medicine; ATTEND Internal Medicine
PROC: 0W9G3ZZ Drainage of Peritoneal Cavity, Percutaneous Approach (ICD-10-PCS; principal; 2020-10-16)
DX: K74.60 Unspecified cirrhosis of liver (principal); E87.2 Acidosis; D68.9 Coagulation defect, unspecified; I82.409 Acute embolism and thrombosis of unspecified deep veins of unspecified lower extremity; E87.6 Hypokalemia; E11.9 Type 2 diabetes mellitus without complications; I10 Essential (primary) hypertension; E78.5 Hyperlipidemia, unspecified; Z85.028 Personal history of other malignant neoplasm of stomach; Z90.3 Acquired absence of stomach [part of]; B19.20 Unspecified viral hepatitis C without hepatic coma; N48.89 Other specified disorders of penis; D69.6 Thrombocytopenia, unspecified; I50.810 Right heart failure, unspecified; D64.9 Anemia, unspecified; K86.9 Disease of pancreas, unspecified; N40.1 Benign prostatic hyperplasia with lower urinary tract symptoms; R33.8 Other retention of urine; Z20.822 Contact with and (suspected) exposure to COVID-19
CPT/HCPCS: 36415; 49083; 71045; 74170; 74177; 80048; 80053; 81001; 82105; 82140; 82248; 82378; 82607; 82746; 82948; 83010; 83036; 83605; 83615; 83735; 83880; 84155; 84443; 84484; 85014; 85025; 85045; 85610; 86301; 87040; 87070; 87205; 87521; 88112; 89051; 93970; 97139; 99251; 99284; J1650; J1756; J2543; J3480; J7030; J7050; Q0162; Q9967; U0002